=== PATIENT | female | born 1975 | race Caucasian/White ===

== ENCOUNTER 2017-06-13 23:54 | Emergency (ER) | payer SELFPAY ==
[2017-06-14] MEDS ORDERED: Lidocaine 2% Viscous Solution 10 ML, Aluminum & Magnesium Hydroxide 20 ML, Donnatal Eli... SSW SCH ×3 (00:45)
[2017-06-14 01:06] LABS: #Eosinphils 0.2 thou/uL (0.0-0.7); #Lymphocytes 1.6 thou/uL (1.20-3.40); #Monocytes 1.1 thou/uL (0.11-0.59); #Neutrophils 7.2 thou/uL (1.40-6.50); %Basophils 0.3 % (0.0-1.0); %Eosinophils 2.1 % (0.0-10.0); %Lymphocytes 15.7 % (21.0-51.0); %Monocytes 10.5 % (0.0-10.0); %Neutrophils 71.4 % (42.0-75.0); Hemoglobin 12.1 g/dL (12.0-16.0); Mean Corpuscular HGB CONC 32.2 g/dL (32.0-36.0); Mean Corpuscular Hemoglobin 30.2 pg (27.0-31.0); Mean Corpuscular Volume 93.7 fl (81.0-99.0); Mean Platelet Volume 7.1 fL (7.4-10.4); Platelet Count 314 thou/uL (130-400); RBC Distribution Width 12.7 % (11.5-14.5); Red Blood Cell (RBC) Count 4.02 mill/uL (4.20-5.40); White Blood Cell (WBC) Count 10.1 thou/uL (4.8-10.8)
[2017-06-14 01:26] LABS: ALT (SGPT) 13 U/L (8-55); AST (SGOT) 14 U/L (5-34); Alkaline Phosphatase 69 U/L (40-150); Anion Gap 12 mmol/L (10-20); BUN (Urea Nitrogen) 12 mg/dL (7.0-18.7); Bilirubin, Total 0.3 mg/dL (0.2-1.2); Calc. Creatinine Clearance 0 mL/min (70-130); Calcium 8.9 mg/dL (7.8-10.44); Carbon Dioxide 23 mmol/L (22-29); Chloride 105 mmol/L (98-107); Estimated GFR-MDRD 79; Glucose 104 mg/dL (70-105); Lipase 13 U/L (8-78); Potassium 3.8 mmol/L (3.5-5.1); Sodium 136 mmol/L (136-145)
[2017-06-14 01:30] LABS: CKMB 2.5 ng/mL (0-6.6); Troponin I Less than 0.010 ng/mL (< 0.028)
[2017-06-14] MEDS ORDERED: Morphine 4 MG/ML VIAL ONE (01:57)
[2017-06-14] MEDS ORDERED: ISOVUE-370 76%-LOCM 1 ML ONE (06:24)
--- NOTE | 2017-06-14 08:00 | RAD ---
RADIOGRAPH OF CHEST FRONTAL VIEW: INDICATION: Chest pain. COMPARISON: None. FINDINGS: There is a mass-like opacity at the right lung base. Lungs are hyperinflated. Cardiac silhouette is normal in size. No acute osseous abnormality identified. IMPRESSION: Mass-like opacity at the right lung base. Considerations would include a neoplasm versus area of rou nded pneumonia. Continued imaging followup as necessary as well as clinical correlation. POS: TOLU
--- NOTE | 2017-06-14 09:08 | CT ---
PRELIMINARY REPORT/[facility]/EMERGENCY AFTER HOURS PROCEDURE: EXAM: CT Angiography Chest With Intravenous Contrast CLINICAL HISTORY: 41 years old, female; Pain; Chest pain; Type not specified TECHNIQUE: Axial computed tomographic angiography images of the chest with intravenous contrast using pulmonary embolism protocol. CONTRAST: 70 mL of ISOVUE administered intravenously. COMPARISON: No relevant prior studies available. FINDINGS: Pulmonary arteries: No acute findings. No pulmonary embolism. Aorta: No acute findings. No thoracic aortic aneurysm. Lungs: Focal 2.5 x 2.3 x 3.6 cm consolidation, anteriorly in the lateral segment, right middle lobe, contacting the anterior pleural surface, with associated punctate satellite nodules. Pleural space: No acute findings. No significant effusion. No pneumothorax. Heart: No acute findings. No cardiomegaly. No significant pericardial effusion. No evidence of RV dys function. Bones/joints: Chronic degenerative spinal changes without acute fracture or dislocation. Soft tissues: No acute findings. Lymph nodes: No acute findings. No enlarged lymph nodes. IMPRESSION: Right middle lobe consolidation. Findings are most likely reflective of pneumonia although neoplasm n ot completely and short interval follow up post treatment is advised. No pulmonary embolism. Thank you for allowing us to participate in the care of your patient. Dictated and Authenticated by: Nevaeh Plascencia MD 06/14/2017 3:40 AM Central Time ([place] & [place])8 4:21 AM Central Time ([place] & [place]) FINAL REPORT CTA CHEST WITH 3D VOLUME RENDERING: FINDINGS/IMPRESSION: I agree with the preliminary interpretation. Focal rounded mass-like opacity of the lateral aspect right middle lobe with surrounding ground-glass opacity and satellite nodularity may relate to a focus of rounded pneumonia. The possibility of a m ass related to malignancy is not excluded. Therefore, recommend appropriate treatment regimen for pn eumonia with imaging followup to confirm complete resolution. POS: NAYELI
--- NOTE | 2017-06-14 15:27 | EKG ---
Test Reason : CP Blood Pressure : / mmHG Vent. Rate : 092 BPM Atrial Rate : 092 BPM P-R Int : 118 ms QRS Dur : 092 ms QT Int : 368 ms P-R-T Axes : 078 066 072 degrees QTc Int : 455 ms Normal sinus rhythm Normal ECG Confirmed by RENNY HARRIS M.D. ([id number]), manager editorial [employer] ([id number]) on 06/14/2017 3:26:27 PM Referred By: Confirmed By:RENNY HARRIS M.D.
== END 2017-06-14 04:18 | disposition home or self-care (01) ==
LOC: ERS 23:54
DX: J18.9 Pneumonia, unspecified organism (principal)
CPT/HCPCS: 36415; 71045; 71275; 80053; 82553; 83690; 84484; 85025; 85379; 93005; 96374; J2270